=== PATIENT | male | born 1980 | race African-American/Black ===

== ENCOUNTER 2017-04-16 18:28 | Emergency (ER) | payer SELFPAY ==
[~2017-04-16] VITALS: Ht 180.3 cm; Wt 87.2 kg
[~2017-04-16 18:28] MED LIST: ANUCORT-HC25 MG RC; BACTERICIN30 GM TP; BENTYL10 MG PO; BENTYL20 MG PO; IMODIUM MS REL1 EACH PO; PERCOCET 5/31 TABLET PO; ZOFRAN ODT4 MG PO; ZOFRAN4 MG PO
[2017-04-16 20:13] LABS: MCH 31.7 PG (29.0-34.0); MCHC 33.6 G/DL (30.0-36.0); MCV 94.5 FL (86-99); MEAN PLAT.VOLUME 9.2 uM^3 (9.0-12.4); PLATELET COUNT 285 K/uL (156-360); RBC DIS.WIDTH-CV 12.2 % (11.8-14.6); RBC DIS.WIDTH-SD 42.7 % (39-53); RED BLOOD COUNT 4.76 M/uL (4.00-5.50); WHITE BLOOD COUNT 7.8 K/uL (4.1-10.2)
[2017-04-16 20:24] LABS: CHLORIDE 108 mEq/L (99-109); SODIUM 139 mEq/L (136-147)
[2017-04-16 20:25] LABS: GLUCOSE 93 mg/dL (70-99)
[2017-04-16 20:27] LABS: ANION GAP 13 MEQ/L (2-14)
[2017-04-16 20:29] LABS: GFR ESTIMATE (CALCULATED) > 59 mL/min/
[2017-04-16 20:30] LABS: UREA NITROGEN (BUN) 14 mg/dL (9-23)
[2017-04-16 20:37] LABS: TROP-I INTERPRETATION NEGATIVE; TROPONIN-I < 0.01 ng/mL (0.0-0.30)
[2017-04-16] MEDS ORDERED: ZITHROMAX Z-PA250 MG PO (20:44)
[2017-04-16] MEDS ORDERED: PHENERGAN-CODE120 ML PO (20:44)
[2017-04-16] MEDS ORDERED: MEDROL DOSEPAK4 MG PO (20:44)
[2017-04-16 21:07] VITALS: BP 109/70
== END 2017-04-16 21:23 | disposition home or self-care (01) ==
LOC: EME 18:28
DX: J06.9 Acute upper respiratory infection, unspecified (principal); R07.81 Pleurodynia; F17.200 Nicotine dependence, unspecified, uncomplicated
CPT/HCPCS: 71020; 80048; 84484; 85027; 93005; 99281; 99284; J8540

== ENCOUNTER 2017-05-01 21:09 | Emergency (ER) | payer OTHER ==
[~2017-05-01] VITALS: Ht 180.3 cm; Wt 83.8 kg
[~2017-05-01 21:09] MED LIST changes: +MEDROL DOSEPAK4 MG PO; +PHENERGAN-CODE120 ML PO; +ZITHROMAX Z-PA250 MG PO
[2017-05-01 21:57] LABS: HEMATOCRIT 38.5 % (38.0-50.0); MCHC 35.1 G/DL (30.0-36.0); MCV 91.2 FL (86-99); MEAN PLAT.VOLUME 8.9 uM^3 (9.0-12.4); PLATELET COUNT 235 K/uL (156-360); RBC DIS.WIDTH-CV 11.9 % (11.8-14.6); RBC DIS.WIDTH-SD 39.9 % (39-53); RED BLOOD COUNT 4.22 M/uL (4.00-5.50); WHITE BLOOD COUNT 7.7 K/uL (4.1-10.2)
[2017-05-01 22:08] LABS: CHLORIDE 107 mEq/L (99-109); POTASSIUM 4.2 mEq/L (3.7-5.4); SODIUM 138 mEq/L (136-147)
[2017-05-01 22:09] LABS: GLUCOSE 91 mg/dL (70-99)
[2017-05-01 22:11] LABS: ANION GAP 10 MEQ/L (2-14)
[2017-05-01 22:13] LABS: GFR ESTIMATE (CALCULATED) > 59 mL/min/
[2017-05-01 22:14] LABS: UREA NITROGEN (BUN) 12 mg/dL (9-23)
[2017-05-01 22:29] VITALS: BP 121/73
== END 2017-05-01 22:35 | disposition home or self-care (01) ==
LOC: EME 21:09
PROVIDERS: Emergency Medicine
DX: R56.9 Unspecified convulsions (principal); F12.90 Cannabis use, unspecified, uncomplicated; F17.200 Nicotine dependence, unspecified, uncomplicated
CPT/HCPCS: 80048; 85027; 99281; 99285; J2060